=== PATIENT | male | born 1965 | race African-American/Black ===

== ENCOUNTER 2021-05-13 21:53 | Emergency (ER) | payer MEDICAID ==
[~2021-05-13] VITALS: Ht 180.3 cm; Wt 82.0 kg
[2021-05-14 01:13] LABS: EOSINOPHILS % 1.1 % (0.0-5.0); HEMATOCRIT. 35.6 % (42.0-52.0); HEMOGLOBIN. 12.1 g/dL (14.0-18.0); LYMPHOCYTES % 23.5 % (20.0-50.0); MEAN CORPUSCULAR VOLUME 85.7 fL (80.0-94.0); MEAN PLATELET VOLUME 8.4 fl (7.4-10.4); MONOCYTES % 8.1 % (2.0-8.0); NEUTROPHILS % 66.3 % (40.0-76.0); PLATELET 389 x1000/uL (130-400); RED BLOOD CELL COUNT 4.16 mill/uL (4.7-6.1); RED CELL DISTRIBUTION WIDTH 14.9 % (11.6-14.6)
[2021-05-14 01:23] LABS: CHLORIDE 102 mEq/L (98-107)
[2021-05-14 03:08] LABS: CLARITY URINE CLEAR (CLEAR); COLOR URINE YELLOW (YELLOW); KETONES URINE NEGATIVE (NEGATIVE); LEUKOCYTE ESTERASE URINE NEGATIVE (NEGATIVE); NITRITE URINE NEGATIVE (NEGATIVE); OCCULT BLOOD URINE NEGATIVE (NEGATIVE); PH URINE 6.5 (4.5-8.0); PROTEIN URINE NEGATIVE (NEGATIVE); SPECIFIC GRAVITY URINE 1.015 (1.005-1.030)
[2021-05-14] MEDS ORDERED: IBUP-2029 MT (03:41)
[2021-05-14] MEDS ORDERED: IBUPROFEN 600MG TABLET PO ONE (03:45)
[2021-05-14 05:00] VITALS: BP 168/106
[2021-05-14] MEDS ORDERED: IBUP-2030 MT (11:36)
== END 2021-05-14 05:00 | disposition home or self-care (01) ==
LOC: ER 21:53
DX: R07.89 Other chest pain (principal); R05.9 Cough, unspecified; R06.02 Shortness of breath
CPT/HCPCS: 36415; 71045; 80053; 81003; 83880; 84484; 85025; 93005; 99285

== ENCOUNTER 2021-09-04 08:14 | Emergency (ER) | payer MEDICAID ==
[~2021-09-04] VITALS: Ht 182.9 cm; Wt 83.0 kg
[~2021-09-04 08:14] MED LIST: IBUP-2029 MT; IBUP-2030 MT
[2021-09-04] MEDS ORDERED: MIDAZOLAM HCL 2 MG/2 ML VIAL IV ONE ×3 (09:00→17:00)
[2021-09-04] MEDS ORDERED: SODIUM CHLORIDE 0.9% 1,000 ML IV ONE (09:00)
[2021-09-04 12:22] LABS: EOSINOPHILS % 1.4 % (0.0-5.0); HEMATOCRIT. 36.2 % (42.0-52.0); HEMOGLOBIN. 11.9 g/dL (14.0-18.0); LYMPHOCYTES % 13.8 % (20.0-50.0); MEAN CORPUSCULAR HEMOGLOBIN 28.1 pg (28.0-32.0); MEAN CORPUSCULAR VOLUME 85.9 fL (80.0-94.0); MEAN PLATELET VOLUME 7.7 fl (7.4-10.4); MONOCYTES % 10.1 % (2.0-8.0); NEUTROPHILS % 73.7 % (40.0-76.0); PLATELET 297 x1000/uL (130-400); RED BLOOD CELL COUNT 4.22 mill/uL (4.7-6.1); RED CELL DISTRIBUTION WIDTH 19.9 % (11.6-14.6)
[2021-09-04] MEDS ORDERED: MIDAZOLAM HCL 2 MG/2 ML VIAL IM ONE (12:30)
[2021-09-04 12:32] LABS: CHLORIDE 105 mEq/L (98-107)
[2021-09-04 12:37] LABS: PROTHROMBIN TIME 10.9 sec (9.6-11.0)
[2021-09-04] MEDS ORDERED: ASPIRIN 325MG TABLET PO ONE (14:15)
[2021-09-04 17:22] VITALS: BP 138/88
[2021-09-04] MEDS ORDERED: LEVO750T46 MT (18:19)
[2021-09-04 18:51] LABS: *AMPHETAMINES SCREEN URINE PRESUMTIVE POSITIVE (NEGATIVE); *BARBITURATES SCREEN URINE NEGATIVE (NEGATIVE); *BENZODIAZEPINES SCREEN URINE PRESUMTIVE POSITIVE (NEGATIVE); *COCAINE SCREEN URINE NEGATIVE (NEGATIVE); CANNABINOID URINE SCREEN PRESUMTIVE POSITIVE (NEGATIVE); METHADONE URINE SCREEN NEGATIVE (NEGATIVE); OPIATES URINE SCREEN NEGATIVE (NEGATIVE); PHENCYCLIDINE URINE SCREEN NEGATIVE (NEGATIVE)
[2021-09-04] MEDS ORDERED: IOHEXOL-350 100 ML BOTTLE ONE (19:07)
== END 2021-09-04 19:25 | disposition home or self-care (01) ==
LOC: ER 08:14
DX: J18.9 Pneumonia, unspecified organism (principal); N17.9 Acute kidney failure, unspecified; F22 Delusional disorders; I10 Essential (primary) hypertension; F15.10 Other stimulant abuse, uncomplicated; F16.10 Hallucinogen abuse, uncomplicated; F12.10 Cannabis abuse, uncomplicated; F13.10 Sedative, hypnotic or anxiolytic abuse, uncomplicated; R00.0 Tachycardia, unspecified; R45.1 Restlessness and agitation; G40.909 Epilepsy, unspecified, not intractable, without status epilepticus
CPT/HCPCS: 36415; 71045; 71275; 80053; 80305; 84484; 85025; 85610; 93005; 96372; 96374; 96376; 99285; J2250; J7030; Q9967; Z7610

== ENCOUNTER 2021-09-05 05:40 | Emergency (ER) | payer MEDICAID ==
[~2021-09-05] VITALS: Ht 185.4 cm; Wt 100.0 kg
[~2021-09-05 05:40] MED LIST changes: +LEVO750T46 MT
[2021-09-05 06:07] VITALS: BP 149/81
== END 2021-09-05 09:40 | disposition left against medical advice (07) ==
LOC: ER 05:40
DX: R05.9 Cough, unspecified (principal); R07.89 Other chest pain
CPT/HCPCS: 93005; 99283